=== PATIENT | female | born 1955 ===

== ENCOUNTER 2018-09-30 13:36 | Outpatient (CLI) | payer MEDICAID ==
[2018-09-30] MEDS ORDERED: [UNRECOGNIZED DRUG - REMARK] (14:44)
--- NOTE | 2018-10-01 16:56 | Consultation ---
DATE OF CONSULTATION: 09/30/2018 CONSULTING PHYSICIAN: Rome Demarco M.D. CHIEF COMPLAINT: Abdominal pain. HISTORY OF PRESENT ILLNESS: This is a 63-year-old female without any significant past medical history presented with complaint of increased abdominal girth since last 10 years. Apparently, she has been having this problem for over 10 years. Never had a colonoscopy before. Denies any nausea, vomiting, dysphagia, odynophagia. Denies any melena or hematochezia. No weight loss. No GI bleeding. Apparently, she had an abdominal ultrasound done a month ago, which was negative for any ascites or anything. PAST MEDICAL HISTORY: None. PAST SURGICAL HISTORY: and oophorectomy. MEDICATIONS: None. FAMILY HISTORY: No family history of GI malignancies. SOCIAL HISTORY: The patient denies any tobacco, alcohol, or illicit drug abuse. ALLERGIES: Penicillin. REVIEW OF SYSTEMS: A 10-point review of systems was performed and pertinent positives in HPI. PHYSICAL EXAMINATION: GENERAL: This is a well-developed female, in no acute distress. HEENT: Normocephalic and atraumatic. Sclerae anicteric. NECK: Supple. No evidence of obvious lymphadenopathy. CARDIOVASCULAR: Regular rate and rhythm. Plus S1 and S2. No obvious murmur. LUNGS: Clear to auscultation bilaterally. ABDOMEN: Positive bowel sounds. Soft and nontender. No rebound. No guarding. No peritoneal sign. EXTREMITIES: No cyanosis. No clubbing. No edema. ASSESSMENT AND PLAN: This is a 63-year-old female with abdominal bloating. Differential diagnosis would be lactose intolerance, but the patient states she does not drink too much milk. going on for many years. Other possibility would be just IBS, but the patient does not have significant abdominal pain. Other possibility would be SIBO, small intestinal bacterial overgrowth. Given her age of 63 and never had a colonoscopy, the patient was offered a colonoscopy. At this time, she is refusing. My plan will be to start on VSL#3 one tablet p.o. daily. If it does not improve, we will consider adding Xifaxan for 14 days course. Meanwhile, we will continue to recommend the patient to have a colonoscopy and if she agrees. Rome Barrett Demarco DR: ARIEL JOB#: [id number] CC:
== END 2018-09-30 15:36 | disposition home or self-care (01) ==
LOC: PAN 13:36
DX: R10.9 Unspecified abdominal pain (principal); Z88.0 Allergy status to penicillin